=== PATIENT | male | born 1935 | race Caucasian/White ===

== ENCOUNTER 2016-07-20 15:51 | Emergency (ER) | payer MEDICARE ==
[2016-07-20] MEDS ORDERED: NS 0.9% 1000 ML* 1,000 ML IV ONE (17:56)
[2016-07-20 18:24] LABS: Hematocrit 43 % (42-52); Hemoglobin 13.9 g/dl (14.0-18.0); Mean Corpuscular HGB Conc 33 g/dl (31-36); Mean Corpuscular Hemoglobin 29 pg (27-31); Mean Corpuscular Volume 89 fL (80-94); Mean Platelet Volume 8 um3 (7.4-10.4); Red Blood Count 4.76 10^6/ul (4.0-5.4); Red Cell Distribution Width 14 % (10.5-15); White Blood Count 6.1 10^3/ul (3.5-10.8)
[2016-07-20 18:25] LABS: Add Diff/Slide Review? Slide Review Added; Comments Flag Yes
[2016-07-20 18:47] LABS: BUN/Creatinine Ratio 25.7 (8-20); C Reactive Protein 68.43 mg/L (< 5.00); Calcium 9.1 mg/dL (8.6-10.3); EGFR African American 83.3 (>60); EGFR Non-African American 64.8 (>60); Globulin 3.2 g/dL (2-4); Potassium 3.3 mmol/L (3.5-5.0); Total Bilirubin 0.9 mg/dL (0.2-1.0); Total Protein 7.2 g/dL (6.4-8.9)
[2016-07-20 20:16] LABS: Immature Granulocytes 2 % (0-9); Metamyelocytes % 2 % (0-2); Neutrophil % 78 % (38-83); RBC Morphology Normal (Normal)
[2016-07-20] MEDS ORDERED: Ciprofloxacin TAB* 500 MG PO ONE (21:19)
[2016-07-20 21:38] VITALS: BP 143/64
--- NOTE | 2016-07-22 07:13 | ED ---
Colette Beverly Alok, scribed for Mateusz Horvath MD on 07/20/16 at 1817 . GI/ HPI - HPI Summary HPI Summary: 80M presents to the ED for N/V/D since 4 days ago. Pt states that although his N /V has subsided since he still has been suffering from watery diarrhea during all BM. Pt state his BM have been normal in terms of frequency. Pt denies abd pain. Pt has been taking Zithromax on and off for years to prevent mycoplasma. - History of Current Complaint Chief Complaint: EDNauseaVomitDiarrh Time Seen by Provider: 07/20/16 17:50 Stated Complaint: DIARRHEA,DEHYDRATION Hx Obtained From: Patient Onset/Duration: Started Days Ago, Atraumatic, Still Present Timing: Constant, Lasting Days Severity: Moderate Current Severity: Moderate Pain Intensity: 0 Associated Signs and Symptoms: Positive: Nausea, Vomiting, Diarrhea - Additional Pertinent History Primary Care Physician: NAREN - Allergy/Home Medications Allergies/Adverse Reactions: Allergies Allergy/AdvReac Type Severity Reaction Status Date / Time Latex Allergy Severe Anaphylatic Verified 06/09/16 21:04 Shock Penicillins [PCN] Allergy Anaphylatic Verified 06/09/16 21:04 Shock Statins Allergy Unknown Verified 06/09/16 21:04 Reaction Details Verapamil [From [facility]] Allergy Unknown Verified 06/09/16 21:04 Reaction Details PMH/Surg Hx/FS Hx/Imm Hx Endocrine/Hematology History: Reports: Hx Anticoagulant Therapy - on Coumadin Denies: Hx Diabetes Cardiovascular History: Reports: Hx Angina, Hx Angioplasty, Hx Auto Implanted Cardiovert Defib, Hx Cardiomegaly, Hx Congestive Heart Failure, Hx Coronary Artery Disease, Hx Hypercholesterolemia, Hx Hypertension, Hx Myocardial Infarction, Hx Pacemaker/ICD, Hx Valvular Heart Disease - porcine AVR, Other Cardiovascular Problems/Disorders - 1997 [facility]. CORONARY BY-PASS, DR LANDEROS Denies: Hx Deep Vein Thrombosis, Hx Rheumatic Fever, Hx Syncope Respiratory History: Reports: Hx Chronic Obstructive Pulmonary Disease (COPD), Hx Pneumonia - Admitting Dx, Other Respiratory Problems/Disorders - CHF, Denies: Hx Seasonal Allergies GI History: Reports: Hx Gall Bladder Disease - cholecystectomy 2012, Other GI Disorders - abdominal hernia repaired 2012 History: Denies: Hx Renal Disease Musculoskeletal History: Reports: Hx Arthritis - FINGERS, Other Musculoskeletal History - 2012, FELL," CRACKED" LOW BACK, REST, NO Tx Denies: Hx Back Problems Sensory History: Reports: Hx Contacts or Glasses, Hx Macular Degeneration Denies: Hx Cataracts, Hx Hearing Aid Opthamlomology History: Reports: Hx Contacts or Glasses, Hx Macular Degeneration Denies: Hx Cataracts Neurological History: Reports: Other Neuro Impairments/Disorders - syncope Denies: Hx Seizures, Hx Spinal Cord Injury - Cancer History Cancer Type, Location and Year: prostate CA, radical prostectomy Hx Chemotherapy: No Hx Radiation Therapy: No - Surgical History Surgery Procedure, Year, and Place: 2006 Aortic valve replace (pig) [facility]. 4 vessel CABG 1997 [facility]. 2011 Cholecystectomy [facility]. Prostatectomy 1995 [facility]. 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 No FHx of anesthesia reaction - Social History Occupation: Retired Alcohol Use: Rare Alcohol Amount: 1 beer/ week Substance Use Type: Reports: None Smoking Status (MU): Former Smoker Type: Cigarettes Amount Used/How Often: 2.5 PPD Length of Time of Smoking/Using Tobacco: 50 years Have You Smoked in the Last Year: No Review of Systems Negative: Fever Positive: Vomiting, Diarrhea, Nausea. Negative: Abdominal Pain All Other Systems Reviewed And Are Negative: Yes Physical Exam Triage Information Reviewed: Yes Vital Signs On Initial Exam: Initial Vitals Pulse Resp BP Pulse Ox 85 20 129/71 97 07/20/16 15:53 07/20/16 15:53 07/20/16 15:53 07/20/16 15:53 Vital Signs Reviewed: Yes Appearance: Positive: Well-Appearing, No Pain Distress Skin: Positive: Warm, Skin Color Reflects Adequate Perfusion, Dry Head/Face: Positive: Normal Head/Face Inspection Eyes: Positive: Normal ENT: Positive: Normal ENT inspection Neck: Positive: Supple, Nontender Respiratory/Lung Sounds: Positive: Clear to Auscultation, Breath Sounds Present Cardiovascular: Positive: RRR Abdomen Description: Positive: Nontender, Soft Bowel Sounds: Positive: Present Musculoskeletal: Positive: Normal Neurological: Positive: Normal Psychiatric: Positive: Normal, Affect/Mood Appropriate - [place] Coma Scale Coma Scale Total: 15 Diagnostics - Vital Signs Vital Signs Temp Pulse Resp BP Pulse Ox 05/30/17 17:45 86 173/73 95 07/20/16 17:42 188/96 07/20/16 17:33 98 F 84 18 188/96 95 07/20/16 15:53 85 20 129/71 97 - Laboratory Lab Results: Lab Results 07/20/16 07/20/16 07/20/16 Range/Units 18:15 18:15 18:15 WBC 6.1 (3.5-10.8) 10^3/ul RBC 4.76 (4.0-5.4) 10^6/ul Hgb 13.9 L (14.0-18.0) g/dl Hct 43 (42-52) % MCV 89 (80-94) fL MCH 29 (27-31) pg MCHC 33 (31-36) g/dl RDW 14 (10.5-15) % Plt Count 134 L (150-450) 10^3/ul MPV 8 (7.4-10.4) um3 Immature Gran % (Auto) 2 (0-9) % Neut % (Auto) 75.1 (38-83) % Lymph % (Auto) 11.4 L (25-47) % [place] % (Auto) 12.6 H (1-9) % Eos % (Auto) 0.1 (0-6) % Baso % (Auto) 0.8 (0-2) % Absolute Neuts (auto) 4.6 (1.5-7.7) 10^3/ul Absolute Lymphs (auto) 0.7 L (1.0-4.8) 10^3/ul Absolute Monos (auto) 0.8 (0-0.8) 10^3/ul Absolute Eos (auto) 0 (0-0.6) 10^3/ul Absolute Basos (auto) 0 (0-0.2) 10^3/ul Absolute Nucleated RBC 0.01 10^3/ul Neutrophils % 78 (38-83) % Band Neutrophils % 1 (0-8) % Lymphocytes % 12 L (25-47) % Monocytes % 6 (0-13) % Basophils % 1 (0-2) % Metamyelocytes % 2 (0-2) % Nucleated RBC % 0.1 Normal RBC Morphology Normal (Normal) Sodium 135 (133-145) mmol/L Potassium 3.3 L (3.5-5.0) mmol/L Chloride 101 (101-111) mmol/L Carbon Dioxide 26 (22-32) mmol/L Anion Gap 8 (2-11) mmol/L BUN 28 H (6-24) mg/dL Creatinine 1.09 (0.67-1.17) mg/dL Est GFR ( Amer) 83.3 (>60) Est GFR (Non-Af Amer) 64.8 (>60) BUN/Creatinine Ratio 25.7 H (8-20) Glucose 90 (70-100) mg/dL Lactic Acid 1.5 (0.5-2.0) mmol/L Calcium 9.1 (8.6-10.3) mg/dL Total Bilirubin 0.90 (0.2-1.0) mg/dL AST 35 (13-39) U/L ALT 19 (7-52) U/L Alkaline Phosphatase 41 (34-104) U/L C-Reactive Protein 68.43 H (< 5.00) mg/L Total Protein 7.2 (6.4-8.9) g/dL Albumin 4.0 (3.2-5.2) g/dL Globulin 3.2 (2-4) g/dL Albumin/Globulin Ratio 1.3 (1-3) Lipase 18 (11.0-82.0) U/L Result Diagrams: 07/20/16 18:15 07/20/16 18:15 Lab Statement: Any lab studies that have been ordered have been reviewed, and results considered in the medical decision making process. GIGU Course/Dx - Course Course Of Treatment: Mr. Ozuna came in C/O continued diarrhea for 3-4 days. It started with vomiting which resolved after a day and he has very little if any pain. He was rehydrated and found to have WBCs and RBCs in his stool so he was treated presumptively with cipro. His c.diff was negative. - Diagnoses Provider Diagnoses: Dehydration, Dysentery Discharge - Discharge Plan Condition: Stable Disposition: HOME Prescriptions: Ciprofloxacin TAB* [Cipro Tab*] 500 mg PO BID #20 tab Patient Education Materials: Gastroenteritis (ED) Referrals: Pierce GARCIA,Kaylen Mathews [Primary Care Provider] - The documentation as recorded by the Colette darden Alok accurately reflects the service I personally performed and the decisions made by me, Mateusz Horvath MD.
== END 2016-07-20 21:39 | disposition home or self-care (01) ==
LOC: ED 15:51
DX: E86.0 Dehydration (principal); A09 Infectious gastroenteritis and colitis, unspecified; R11.2 Nausea with vomiting, unspecified; R19.7 Diarrhea, unspecified; Z87.891 Personal history of nicotine dependence
CPT/HCPCS: 36415; 80053; 82272; 83605; 83630; 83690; 85025; 86140; 87045; 87046; 87077; 87493; 87899; 96360; 99283; A9270-GY

== ENCOUNTER 2017-07-29 11:58 | Emergency (ER) | payer MEDICARE ==
[2017-07-29] MEDS ORDERED: Tetan/Diph/Pertus SYR(Tdap)* 0.5 ML SYR(BOOSTRIX) use SYR IM ONE (12:31)
[2017-07-29 12:53] LABS: ABS Basophils 0 10^3/ul (0-0.2); ABS Eosinophils 0 10^3/ul (0-0.6); ABS Lymphocytes 0.5 10^3/ul (1.0-4.8); ABS Monocytes 0.5 10^3/ul (0-0.8); ABS Neutrophils 4.8 10^3/ul (1.5-7.7); ABS Nucleated RBC 0 10^3/ul; Eosinophil % 0.8 % (0-6); Hematocrit 37 % (42-52); Hemoglobin 12.2 g/dl (14.0-18.0); Lymphocyte % 9.1 % (25-47); Mean Corpuscular HGB Conc 33 g/dl (31-36); Mean Corpuscular Hemoglobin 30 pg (27-31); Mean Corpuscular Volume 92 fL (80-94); Mean Platelet Volume 7.7 um3 (7.4-10.4); Nucleated Red Blood Cells % 0; Platelet Count 104 10^3/ul (150-450); Red Blood Count 4.04 10^6/ul (4.0-5.4); Red Cell Distribution Width 15 % (10.5-15); White Blood Count 5.9 10^3/ul (3.5-10.8)
[2017-07-29 12:58] LABS: INR 1.14 (0.77-1.02)
[2017-07-29 13:12] LABS: EGFR Non-African American 65.3 (>60)
--- NOTE | 2017-07-29 13:33 | RAD ---
Indication: Fall, head injury, patient on anticoagulants CT of the brain was performed without IV contrast. Ventricular structures are midline. No midline shift is noted. There is central and cortical atrophy noted. Periventricular lucency consistent with chronic ischemic White matter change is noted. There is no evidence of intracranial mass or hemorrhage. IMPRESSION: THERE IS NO EVIDENCE OF INTRACRANIAL MASS OR HEMORRHAGE. CHRONIC ISCHEMIC WHITE MATTER CHANGE IS NOTED.
--- NOTE | 2017-07-29 13:43 | RAD ---
HISTORY: fall, anticoagulation COMPARISONS: None TECHNIQUE: Multiple contiguous axial CT scans were obtained of the cervical spine without intravenous contrast, with coronal and sagittal multiplanar reformations. FINDINGS: BRAIN: The visualized brain is unremarkable CENTRAL CANAL: Evaluation of the central canal is limited on CT technique; however, there is no obvious canalicular mass or epidural hemorrhage. ALIGNMENT: There is straightening with reversal of the normal cervical lordosis. There is grade 1 anterolisthesis of C3 on C4. VERTEBRAL BODIES: There is diffuse osteopenia. There is a persistent subdental synchondrosis. There is no displaced fracture or dislocation. There is anterolateral marginal osteophyte formation with sclerotic reactive endplate changes at C3-C4, C4-C5, C5-C6. JOINTS: There is uncovertebral and facet osteoarthritis. MUSCULATURE: Unremarkable INTERVERTEBRAL DISCS: There is diffuse loss of intervertebral disc height. AXIAL IMAGES: C2-C3: There is bilateral facet hypertrophy. There is moderate to severe right neuroforaminal narrowing. There is no osseous central canal stenosis. C3-C4: There is bilateral uncovertebral and facet hypertrophy. There is severe left and moderate right neuroforaminal narrowing. There is mild narrowing of the central canal. C4-C5: There is bilateral uncovertebral facet hypertrophy. There is severe right and moderate to severe left neuroforaminal narrowing. There is no osseous central canal stenosis. C5-C6: There is bilateral uncovertebral facet hypertrophy. There is moderate to severe bilateral neuroforaminal narrowing. There is no osseous central canal stenosis. C6-C7: There is no osseous neural foraminal narrowing or central canal stenosis. C7-T1: There is no osseous neural foraminal narrowing or central canal stenosis. SOFT TISSUES: There is biapical and edematous change and fibrotic changes. There is atherosclerosis of the aorta and carotid arteries. OTHER: None. IMPRESSION: 1. OSTEOPENIA. 2. DEGENERATIVE DISC DISEASE AND OSTEOARTHRITIS. 3. NO ACUTE OSSEOUS INJURY TO THE CERVICAL SPINE.
--- NOTE | 2017-07-29 14:15 | RAD ---
INDICATION: Fall onto LEFT side of face. Anticoagulated. COMPARISON: No relevant prior exams available on the [facility] for comparison. TECHNIQUE: Multidetector CT base of the skull through mandible without contrast. Multiplanar reformation. REPORT: Negative for soft tissue plane hematoma. Unremarkable orbital contents. The orbital and maxillary sinus margins, zygomatic arches, lamina papyracea, base of the maxilla, pterygoid plates, and nasal bones are intact. The senile morphology mandible is intact. Normal temporal mandibular joint alignment. Mild mucosal thickening at the maxillary sinuses. Negative for paranasal sinus fluid levels. Multilevel advanced cervical spine degenerative spondylosis and facet joint osteoarthritis. 2 mm degenerative C3-C4 anterolisthesis. IMPRESSION: No evidence for traumatic maxillofacial injury.
--- NOTE | 2017-07-29 14:42 | RAD ---
INDICATION: LEFT hip and elbow pain post fall. COMPARISON: June 09, 2016 TECHNIQUE: Sitting AP and lateral chest views. REPORT: Elevated lung volumes and both diffuse moderate prominence of the interstitial markings and patchy rarefaction of the mid to upper lung zone interstitial markings. Worsening of interstitial prominence compared with the 2017 exam. No focal pulmonary lesion, compelling alveolar consolidation, pleural effusion, pneumothorax. Mild cardiomegaly. RIGHT atrial, RIGHT ventricular, and coronary sinus level pacemaker leads. Median sternotomy wires and mediastinal vascular clips. Unremarkable central pulmonary vasculature. Mildly tortuous descending thoracic aorta. IMPRESSION: Stigmata of obstructive lung disease with progression of interstitial fibrosis. Honeycombing evident at the lung apices on CT cervical spine of the same date. No acute pulmonary or cardiac process evident.
--- NOTE | 2017-07-29 14:43 | RAD ---
HISTORY: fall elbow pain COMPARISONS: None VIEWS: 4, Frontal, lateral, and oblique views of the left elbow FINDINGS: BONE DENSITY: Normal. BONES: There is no displaced fracture. JOINTS: There is no arthropathy. There is no posterior supracondylar fat pad to suggest a joint effusion. ALIGNMENT: There is no dislocation. SOFT TISSUES: There is peripheral arterial calcification. There is a 0.2 cm radiopaque foreign body within the soft tissues anterior to the distal humerus. OTHER FINDINGS: None. IMPRESSION: 1. PERIPHERAL ARTERIAL DISEASE. 2. SMALL RADIAL OPAQUE FOREIGN BODY WITHIN THE SOFT TISSUES ANTERIOR TO THE DISTAL HUMERUS. 3. NO ACUTE OSSEOUS INJURY. IF SYMPTOMS PERSIST, RECOMMEND REPEAT IMAGING
--- NOTE | 2017-07-29 14:44 | RAD ---
INDICATION: Left hip injury. COMPARISON: There are no prior studies available for comparison. TECHNIQUE: An AP view of the pelvis and frontal and lateral views of the left hip were obtained. The exam is slightly limited by positioning. FINDINGS: The bones are in normal alignment. No fracture is seen. There is moderate bilateral osteoarthritic change in the hips. IMPRESSION: SLIGHTLY LIMITED STUDY, NO EVIDENCE FOR FRACTURE, IF THE PATIENT'S SYMPTOMS PERSIST RECOMMEND FOLLOW-UP IMAGING.
--- NOTE | 2017-07-29 16:00 | ED ---
Jonny Beverly Tiffany, scribed for Negrito Novoa MD on 07/29/17 at 1229 . Complex/Multi-Sys Presentation - HPI Summary HPI Summary: 81 year old M presenting to [facility] complains of left elbow skin abrasion s/p two unwitnessed falls, hitting cabinet near sink, this morning. Symptoms aggravated by nothing. Symptoms alleviated by nothing. Patient reports left knee skin abrasion, left anabaptist skin abrasion. Also states left elbow pain, head pain, left knee pain, and left hip pain. Has ecchymosis throughout his body. Denies LOC. Hx CVA with chronic left-sided weakness. Hx COPD. On Eliquis. - History Of Current Complaint Chief Complaint: EDGeneral Time Seen by Provider: 07/29/17 12:13 Hx Obtained From: Patient Onset/Duration: Still Present Timing: Constant Aggravating Factor(s): Nothing Alleviating Factor(s): Nothing Associated Signs And Symptoms: Positive: Other - left knee skin abrasion, left anabaptist skin abrasion, left elbow pain, head pain, left knee pain, left hip pain , ecchymosis throughout his body; NEGATIVE: LOC - Allergies/Home Medications Allergies/Adverse Reactions: Allergies Allergy/AdvReac Type Severity Reaction Status Date / Time MS Latex [Latex] Allergy Severe Anaphylatic Verified 06/09/16 21:04 Shock MS Penicillins [PCN] Allergy Anaphylatic Verified 06/09/16 21:04 Shock MS Statins [Statins] Allergy Unknown Verified 06/09/16 21:04 Reaction Details MS Verapamil [From Calan SR] Allergy Unknown Verified 06/09/16 21:04 Reaction Details Home Medications: Home Medications Albuterol HFA INHALER* [Ventolin HFA Inhaler*] 1 - 2 puff INH Q4H PRN 07/29/17 [ History Confirmed 07/29/17] Albuterol/Ipratropium NEB.NATALIIA* [Duoneb (Albuterol 2.5 MG/Ipratropium 0.5 MG)] 1 neb INH Q4H PRN 07/29/17 [History Confirmed 07/29/17] Budesonide/Formote 160/4.5(NF) [Symbicort 160/4.5 (NF)] 2 puff INH BID 07/29/17 [History Confirmed 07/29/17] Omeprazole CAP* [Prilosec CAP* 20 MG] 20 mg PO DAILY 07/29/17 [History Confirmed 07/29/17] Vit C/E/Zn/Coppr/Lutein/Zeaxan [Preservision Areds 2 Softgel] 1 cap PO BID 07/29 [History Confirmed 07/29/17] diPHENhydraMINE PO* [Benadryl PO 25 MG TAB*] 50 mg PO BEDTIME PRN 07/29/17 [ History Confirmed 07/29/17] guaiFENesin ER TAB [Mucinex*] 600 mg PO QPM 07/29/17 [History Confirmed 07/29/17 ] PMH/Surg Hx/FS Hx/Imm Hx Previously Healthy: No Endocrine/Hematology History: Reports: Hx Anticoagulant Therapy - on Coumadin Denies: Hx Diabetes Cardiovascular History: Reports: Hx Angina, Hx Angioplasty, Hx Auto Implanted Cardiovert Defib, Hx Cardiomegaly, Hx Congestive Heart Failure, Hx Coronary Artery Disease, Hx Hypercholesterolemia, Hx Hypertension, Hx Myocardial Infarction, Hx Pacemaker/ICD, Hx Valvular Heart Disease - porcine AVR, Other Cardiovascular Problems/Disorders - 1997 QU[facility]. CORONARY BY-PASS, DR LANDEROS Denies: Hx Deep Vein Thrombosis, Hx Rheumatic Fever, Hx Syncope Respiratory History: Reports: Hx Chronic Obstructive Pulmonary Disease (COPD), Hx Pneumonia - Admitting Dx, Other Respiratory Problems/Disorders - CHF, Denies: Hx Seasonal Allergies GI History: Reports: Hx Gall Bladder Disease - cholecystectomy 2012, Other GI Disorders - abdominal hernia repaired 2012 History: Denies: Hx Renal Disease Musculoskeletal History: Reports: Hx Arthritis - FINGERS, Other Musculoskeletal History - 2011, FELL," CRACKED" LOW BACK, REST, NO Tx Denies: Hx Back Problems Sensory History: Reports: Hx Contacts or Glasses, Hx Macular Degeneration Denies: Hx Cataracts, Hx Hearing Aid Opthamlomology History: Reports: Hx Contacts or Glasses, Hx Macular Degeneration Denies: Hx Cataracts Neurological History: Reports: Other Neuro Impairments/Disorders - syncope, strokes Denies: Hx Seizures, Hx Spinal Cord Injury - Cancer History Cancer Type, Location and Year: prostate CA, radical prostectomy Hx Chemotherapy: No Hx Radiation Therapy: No - Surgical History Surgery Procedure, Year, and Place: 2006 Aortic valve replace (pig) [facility]. 4 vessel CABG 1997 [facility]. 2011 Cholecystectomy [facility]. Prostatectomy 1995 [facility]. 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 No FHx of anesthesia reaction - Social History Alcohol Use: Rare Alcohol Amount: 1 beer/ week Hx Substance Use: No Substance Use Type: Reports: None Hx Tobacco Use: Yes Smoking Status (MU): Former Smoker Type: Cigarettes Amount Used/How Often: 2.5 PPD Length of Time of Smoking/Using Tobacco: 50 years Have You Smoked in the Last Year: No Review of Systems Positive: Other - eft elbow pain, head pain, left knee pain, and left hip pain Positive: Other - left elbow skin abrasion, left knee skin abrasion, left anabaptist skin abrasion, ecchymosis throughout his body Neurological: Negative - LOC All Other Systems Reviewed And Are Negative: Yes Physical Exam - Summary Physical Exam Summary: VITAL SIGNS: Reviewed. GENERAL: Patient is an elderly, fragile male who is lying comfortable in the stretcher. Patient is not in any acute respiratory distress. The patient has chronic left side weakness. HEAD AND FACE: No signs of trauma. No ecchymosis, hematomas or skull depressions. No sinus tenderness. EYES: PERRLA, EOMI x 2, No injected conjunctiva, no nystagmus. EARS: Hearing grossly intact. Ear canals and tympanic membranes are within normal limits. MOUTH: Oropharynx within normal limits. NECK: Supple, trachea is midline, no adenopathy, no JVD, no carotid bruit, no c- spine tenderness, neck with full ROM. CHEST: Symmetric, no tenderness at palpation LUNGS: There are crackles in bases of both lungs CVS: Regular rate and rhythm, S1 and S2 present, no murmurs or gallops appreciated. ABDOMEN: Soft, non-tender. No signs of distention. No rebound no guarding, and no masses palpated. Bowel sounds are normal. EXTREMITIES: There is some tenderness in the left hip. NEURO: Alert and oriented x 3. No acute neurological deficits. Speech is normal and follows commands. SKIN: He has multiple ecchymosis throughout his body. He has a skin abrasion on his left elbow, small abrasion on the left side of his forehead, abrasion on his left knee. Triage Information Reviewed: Yes Vital Signs On Initial Exam: Initial Vitals Temp Pulse Resp BP Pulse Ox 97.5 F 79 19 171/58 97 07/29/17 12:07 07/29/17 12:07 07/29/17 12:07 07/29/17 12:07 07/29/17 12:07 Vital Signs Reviewed: Yes Diagnostics - Vital Signs Vital Signs Temp Pulse Resp BP Pulse Ox 07/29/17 12:07 97.5 F 79 19 171/58 97 - Laboratory Lab Results: Lab Results 07/29/17 07/29/17 07/29/17 Range/Units 12:43 12:43 12:43 WBC 5.9 (3.5-10.8) 10^3/ul RBC 4.04 (4.0-5.4) 10^6/ul Hgb 12.2 L (14.0-18.0) g/dl Hct 37 L (42-52) % MCV 92 (80-94) fL MCH 30 (27-31) pg MCHC 33 (31-36) g/dl RDW 15 (10.5-15) % Plt Count 104 L (150-450) 10^3/ul MPV 7.7 (7.4-10.4) um3 Neut % (Auto) 81.1 (38-83) % Lymph % (Auto) 9.1 L (25-47) % [place] % (Auto) 8.3 H (0-7) % Eos % (Auto) 0.8 (0-6) % Baso % (Auto) 0.7 (0-2) % Absolute Neuts (auto) 4.8 (1.5-7.7) 10^3/ul Absolute Lymphs (auto) 0.5 L (1.0-4.8) 10^3/ul Absolute Monos (auto) 0.5 (0-0.8) 10^3/ul Absolute Eos (auto) 0 (0-0.6) 10^3/ul Absolute Basos (auto) 0 (0-0.2) 10^3/ul Absolute Nucleated RBC 0 10^3/ul Nucleated RBC % 0 INR (Anticoag Therapy) (0.77-1.02) Sodium 142 (139-145) mmol/L Potassium 3.9 (3.5-5.0) mmol/L Chloride 102 (101-111) mmol/L Carbon Dioxide 33 H (22-32) mmol/L Anion Gap 7 (2-11) mmol/L BUN 25 H (6-24) mg/dL Creatinine 1.08 (0.67-1.17) mg/dL Est GFR ( Amer) 84.0 (>60) Est GFR (Non-Af Amer) 65.3 (>60) BUN/Creatinine Ratio 23.1 H (8-20) Glucose 112 H (70-100) mg/dL Lactic Acid 2.3 H* (0.5-2.0) mmol/L Calcium 9.3 (8.6-10.3) mg/dL Total Bilirubin 0.80 (0.2-1.0) mg/dL AST 22 (13-39) U/L ALT 16 (7-52) U/L Alkaline Phosphatase 39 (34-104) U/L Total Creatine Kinase 75 (10-223) U/L Total Protein 6.5 (6.4-8.9) g/dL Albumin 3.7 (3.2-5.2) g/dL Globulin 2.8 (2-4) g/dL Albumin/Globulin Ratio 1.3 (1-3) Blood Type Antibody Screen 07/29/17 07/29/17 Range/Units 12:43 12:43 WBC (3.5-10.8) 10^3/ul RBC (4.0-5.4) 10^6/ul Hgb (14.0-18.0) g/dl Hct (42-52) % MCV (80-94) fL MCH (27-31) pg MCHC (31-36) g/dl RDW (10.5-15) % Plt Count (150-450) 10^3/ul MPV (7.4-10.4) um3 Neut % (Auto) (38-83) % Lymph % (Auto) (25-47) % [place] % (Auto) (0-7) % Eos % (Auto) (0-6) % Baso % (Auto) (0-2) % Absolute Neuts (auto) (1.5-7.7) 10^3/ul Absolute Lymphs (auto) (1.0-4.8) 10^3/ul Absolute Monos (auto) (0-0.8) 10^3/ul Absolute Eos (auto) (0-0.6) 10^3/ul Absolute Basos (auto) (0-0.2) 10^3/ul Absolute Nucleated RBC 10^3/ul Nucleated RBC % INR (Anticoag Therapy) 1.14 H (0.77-1.02) Sodium (139-145) mmol/L Potassium (3.5-5.0) mmol/L Chloride (101-111) mmol/L Carbon Dioxide (22-32) mmol/L Anion Gap (2-11) mmol/L BUN (6-24) mg/dL Creatinine (0.67-1.17) mg/dL Est GFR ( Amer) (>60) Est GFR (Non-Af Amer) (>60) BUN/Creatinine Ratio (8-20) Glucose (70-100) mg/dL Lactic Acid (0.5-2.0) mmol/L Calcium (8.6-10.3) mg/dL Total Bilirubin (0.2-1.0) mg/dL AST (13-39) U/L ALT (7-52) U/L Alkaline Phosphatase (34-104) U/L Total Creatine Kinase (10-223) U/L Total Protein (6.4-8.9) g/dL Albumin (3.2-5.2) g/dL Globulin (2-4) g/dL Albumin/Globulin Ratio (1-3) Blood Type A Positive Antibody Screen Negative Result Diagrams: 07/29/17 12:43 07/29/17 12:43 Lab Statement: Any lab studies that have been ordered have been reviewed, and results considered in the medical decision making process. - Radiology CXR Radiology Interpretation Completed By: Radiologist - Stigmata of obstructive lung disease with progression of interstitial fibrosis. Honeycombing evident at the lung apices on CT cervical spine of the same date. No acute pulmonary or cardiac process evident. ED physician has reviewed this report. Elbow Radiology Interpretation Completed By: Radiologist - 1. PERIPHERAL ARTERIAL DISEASE. 2. SMALL RADIAL OPAQUE FOREIGN BODY WITHIN THE SOFT TISSUES ANTERIOR TO THE DISTAL HUMERUS. 3. NO ACUTE OSSEOUS INJURY. IF SYMPTOMS PERSIST, RECOMMEND REPEAT IMAGING. ED physician has reviewed this report. Hip/Pelvis Radiology Interpretation Completed By: Radiologist - SLIGHTLY LIMITED STUDY, NO EVIDENCE FOR FRACTURE, IF THE PATIENT'S SYMPTOMS PERSIST RECOMMEND FOLLOW-UP IMAGING. ED physician has reviewed this report. - CT Brain CT Interpretation Completed By: Radiologist - THERE IS NO EVIDENCE OF INTRACRANIAL MASS OR HEMORRHAGE. CHRONIC ISCHEMIC WHITE MATTER CHANGE IS NOTED. ED physician has reviewed this report. C-Spine CT Interpretation Completed By: Radiologist - 1. OSTEOPENIA. 2. DEGENERATIVE DISC DISEASE AND OSTEOARTHRITIS. 3. NO ACUTE OSSEOUS INJURY TO THE CERVICAL SPINE. ED physician has reviewed this report. Maxillofacial CT Interpretation Completed By: Radiologist - No evidence for traumatic maxillofacial injury. ED physician has reviewed this report. - EKG 12:28 Cardiac Rate: NL EKG Interpretation: Ventricular-paced at 80 BPM. EKG Comparison: No Significant Change - from 06/09/16 Complex Multi-Symp Course/Dx Assessment/Plan: This patient is an 81-year-old male with past medical history significant for dizziness, atrial fibrillation on Eliquis, COPD, hypertension, systolic congestive heart failure, CAD, CVA with left-sided weakness this, prostate cancer and Hx of Aortic valve replacement. Patient presents today reporting that he had 2 mechanical falls. He reports that he has a left-sided weakness secondary to CVA and today he had 2 mechanical falls. Patient was given a tetanus booster today. Blood test results without any significant abnormality except for slight normocytic normochromic anemia. Lactic acid is 2.3, glucose 112. Maxillofacial CT impression: No evidence for traumatic maxillary injury. Head CT impression: there is no evidence of intracranial mass or hemorrhage. Chronic ischemic white matter changes noted. C-spine CT impression: Osteopenia. The degenerative disc disease and osteoarthritis, no acute osseous injury of the cervical spine. Hip x-ray and pelvic x-ray impression: Is slightly limited study. No evidence of fracture. Elbow x-ray impression: Peripheral arterial disease. Small radial pulse foreign body within the soft tissue anterior to the distal humerus. No acute osseous injury. Chest x-ray impression: Stigmata of obstructive lung disease with progression of interstitial fibrosis. Honeycombing evident at the lung apices. No acute pulmonary or cardiac process evident. The patient was ambulated in the ER without any significant abnormality. We recommend for him to use the walker as he is supposed to at home. The patient is with a home health aide and she was not addressed these requests. Therefore the patient be discharged home with follow-up with primary care physician. I discussed all the findings and test results with the patient. Patient was instructed to return to the emergency room immediately if any of the symptoms return or worsens. Plan of care was discussed with the patient and understands and agrees. All questions were answered at patient satisfaction. There were no further complaints or concerns. - Diagnoses Provider Diagnoses: Accident due to mechanical fall without injury, Abrasion, Contusion, hip, Head contusion Discharge - Sign-Out/Discharge Documenting (check all that apply): Discharge/Admit/Transfer - Discharge Plan Condition: Stable Disposition: HOME Patient Education Materials: Fall Prevention for Older Adults (ED), Abrasion ( ED) Referrals: Pierce GARCIA,Kaylen Mathews [Primary Care Provider] - 3 Days Additional Instructions: FOLLOW UP WITH YOUR PRIMARY CARE PROVIDER IN 3 DAYS. RETURN TO THE EMERGENCY DEPARTMENT FOR ANY WORSENING OR NEW SYMPTOMS. The documentation as recorded by the Jonny darden Tiffany accurately reflects the service I personally performed and the decisions made by me, Negrito Novoa MD.
[2017-07-29 16:22] VITALS: BP 164/78
== END 2017-07-29 16:16 | disposition home or self-care (01) ==
LOC: ED 11:58
DX: S00.81XA Abrasion of other part of head, initial encounter (principal); S50.312A Abrasion of left elbow, initial encounter; S80.212A Abrasion, left knee, initial encounter; S00.93XA Contusion of unspecified part of head, initial encounter; S70.02XA Contusion of left hip, initial encounter; W19.XXXA Unspecified fall, initial encounter; Y92.9 Unspecified place or not applicable; I69.354 Hemiplegia and hemiparesis following cerebral infarction affecting left non-dominant side; Z23 Encounter for immunization; I73.9 Peripheral vascular disease, unspecified; J44.9 Chronic obstructive pulmonary disease, unspecified; I25.10 Atherosclerotic heart disease of native coronary artery without angina pectoris; M85.88 Other specified disorders of bone density and structure, other site; M50.322 Other cervical disc degeneration at C5-C6 level; M47.812 Spondylosis without myelopathy or radiculopathy, cervical region; I11.0 Hypertensive heart disease with heart failure; I50.20 Unspecified systolic (congestive) heart failure; J84.10 Pulmonary fibrosis, unspecified; J98.4 Other disorders of lung; Z87.891 Personal history of nicotine dependence; Z95.1 Presence of aortocoronary bypass graft; Z79.899 Other long term (current) drug therapy; Z79.01 Long term (current) use of anticoagulants; Z85.46 Personal history of malignant neoplasm of prostate; Z90.79 Acquired absence of other genital organ(s); Z95.2 Presence of prosthetic heart valve; Z88.0 Allergy status to penicillin; Z88.8 Allergy status to other drugs, medicaments and biological substances
CPT/HCPCS: 36415; 70450; 70486; 71046; 72125; 80053; 82550; 83605; 85025; 85610; 86850; 86900; 86901; 90471; 90715; 93005; 99283